=== PATIENT | female | born 1940 | race Caucasian/White ===

== ENCOUNTER 2016-11-01 11:03 | Day surgery (SDC) | payer OTHER, BC ==
[~2016-11-01] VITALS: Ht 167.6 cm; Wt 70.0 kg
[~2016-11-01 11:03] MED LIST: ARICEPT5 MG PO; CARDIZEM120 MG PO; CEFTRIAXONE IV; COLACE100 MG PO; DULCOLAX10 MG PR; KEPPRA500 MG PO; MAALOX MAXIMUM355 ML PO; MAGNESIUM400 M1 PO; METOPROLOL TART50 MG PO; MULTIPLE VITAM1 EACH PO; MYCOPHENOLATE500 MG PO; NORMAL SALINE FL5 ML IV; PROTONIX40 MG PO; SODIUM CHLORIDE IV; TRAMADOL HCL50 MG PO; TYLENOL REGULA325 MG PO; VALIUM5 MG PO; VITAMIN D2000 UNI1 PO; ZANTAC150 MG PO; ZOLOFT50 MG PO; [UNRECOGNIZED DRUG - OTHER] TP
[2016-11-01 12:15] VITALS: BP 120/57
[2016-11-01 15:15] VITALS: BP 115/57
[2016-11-01 16:13] VITALS: BP 115/57
[2016-11-01 16:26] VITALS: BP 118/58
== END 2016-11-01 16:44 | disposition short-term general hospital (02) ==
LOC: SDC 11:03
PROC: 06H03DZ Insertion of Intraluminal Device into Inferior Vena Cava, Percutaneous Approach (ICD-10-PCS; principal; 2016-11-01)
DX: K92.2 Gastrointestinal hemorrhage, unspecified (principal); Z86.718 Personal history of other venous thrombosis and embolism; I10 Essential (primary) hypertension; K21.9 Gastro-esophageal reflux disease without esophagitis; Z79.01 Long term (current) use of anticoagulants; I25.10 Atherosclerotic heart disease of native coronary artery without angina pectoris; G40.909 Epilepsy, unspecified, not intractable, without status epilepticus; Z88.8 Allergy status to other drugs, medicaments and biological substances
CPT/HCPCS: 71010; C1769; J0330; J0690; J1644; J2250; J2405; J3010